=== PATIENT | male | born 1960 | race Caucasian/White ===

== ENCOUNTER 2019-06-25 08:17 | Emergency (ER) | payer OTHER ==
[~2019-06-25] VITALS: Ht 177.8 cm; Wt 89.8 kg
[2019-06-25] MEDS ORDERED: ADVAIR HFA 230/12 GM (08:58)
[2019-06-25] MEDS ORDERED: PERCOCET 5-3251 EACH PO (11:50)
== END 2019-06-25 12:05 | disposition home or self-care (01) ==
LOC: ER
DX: S83.242A Other tear of medial meniscus, current injury, left knee, initial encounter (principal); M54.5 Low back pain; M17.12 Unilateral primary osteoarthritis, left knee; W01.0XXA Fall on same level from slipping, tripping and stumbling without subsequent striking against object, initial encounter; Y93.01 Activity, walking, marching and hiking; Y92.018 Other place in single-family (private) house as the place of occurrence of the external cause; Y99.8 Other external cause status